=== PATIENT | male | born 1960 | race Native Hawaiian/Other Pacific Islander ===

== ENCOUNTER 2018-11-09 13:11 | Emergency (ER) | payer OTHER | END 2018-11-09 15:49 | disposition home or self-care (01) | LOC: C.ER 13:11 ==

== ENCOUNTER 2018-11-11 17:23 | Inpatient (IN) | payer OTHER ==
[2018-11-11 17:24] VITALS: BMI 31.9
[2018-11-11] MEDS ORDERED: Nitroglycerin 2% Ointment Foilpak UD TOP STA (17:59)
--- NOTE | 2018-11-11 18:06 | C.PDOC ---
History Of Present Illness 58 y/o male pt presents to the ER c/o headache from elevated blood pressure. Pt was recently dx with flu and HTN. Pt blood pressure is about 200 systolic and headache is progressively worse. Pt takes Theraflu. Associated sx includes cough and SOB. Pt denies chest pain and any other associated sx or complaints at this time. <Kahlil Ames V - Last Filed: 11/11/18 19:08> History Per: Patient History/Exam Limitations: no limitations Onset/Duration Of Symptoms: Days Current Symptoms Are (Timing): Still Present <Kahlil Ames V - Last Filed: 11/11/18 19:08> <Aaron Gallegos R - Last Filed: 11/11/18 22:31> Time Seen by Provider: 11/11/18 17:47 Chief Complaint (Nursing): Headache Past Medical History Reviewed: Historical Data, Nursing Documentation, Vital Signs Vital Signs: Last Vital Signs Temp 98 F 11/11/18 17:33 Pulse 62 11/11/18 17:33 Resp 18 11/11/18 17:33 BP 220/137 H 11/11/18 17:33 Pulse Ox 98 11/11/18 17:33 - Medical History PMH: HTN, Hypercholesterolemia Family History: States: Unknown Family Hx - Social History Hx Alcohol Use: No Hx Substance Use: No - Immunization History Hx Tetanus Toxoid Vaccination: No Hx Influenza Vaccination: No Hx Pneumococcal Vaccination: No <Kahlil Ames V - Last Filed: 11/11/18 19:08> Vital Signs: Last Vital Signs Temp 98 F 11/11/18 17:33 Pulse 60 11/11/18 18:42 Resp 20 11/11/18 18:42 BP 189/123 H 11/11/18 18:42 Pulse Ox 98 11/11/18 19:08 <Aaron Gallegos R - Last Filed: 11/11/18 22:31> Review Of Systems Except As Marked, All Systems Reviewed And Found Negative. Constitutional: Positive for: Other (Dx flu and HTN) Eyes: Negative for: Vision Change Cardiovascular: Negative for: Chest Pain Respiratory: Positive for: Cough, Shortness of Breath Gastrointestinal: Negative for: Nausea, Vomiting Neurological: Positive for: Headache <Kahlil Ames V - Last Filed: 11/11/18 19:08> Physical Exam - Physical Exam Appears: Non-toxic, No Acute Distress Skin: Warm, Dry Head: Atraumatic, Normacephalic Eye(s): bilateral: Normal Inspection, PERRL, EOMI Nose: Normal Oral Mucosa: Moist Throat: Erythema, No Exudate, No Drooling Chest: Symmetrical Cardiovascular: Rhythm Regular Respiratory: No Decreased Breath Sounds, No Accessory Muscle Use, No Rales, No Rhonchi, No Stridor, Wheezing (mild b/l ) Gastrointestinal/Abdominal: Soft, No Tenderness Neurological/Psych: Oriented x3, Normal Speech, Normal Cognition <Kahlil Ames V - Last Filed: 11/11/18 19:08> ED Course And Treatment - Laboratory Results Result Diagrams: 11/11/18 18:07 11/11/18 18:07 ECG: Interpreted By Me, Viewed By Me ECG Rhythm: Sinus Rhythm Interpretation Of ECG: normal sinus. incomplete RBBB. nonspecific T wave abnormality Rate From EC O2 Sat by Pulse Oximetry: 98 (RA) Pulse Ox Interpretation: Normal <Kahlil Ames V - Last Filed: 11/11/18 19:08> - Laboratory Results Result Diagrams: 11/11/18 18:07 11/11/18 18:07 Lab Results: Troponin I < 0.0120 ng/mL (0.00-0.120) 11/11/18 18:07 Total Bilirubin 1.1 mg/dL (0.2-1.3) 11/11/18 18:07 AST 42 U/L (17-59) 11/11/18 18:07 ALT 25 U/L (21-72) 11/11/18 18:07 Alkaline Phosphatase 60 U/L (38-126) 11/11/18 18:07 Total Protein 7.7 g/dL (6.3-8.3) 11/11/18 18:07 Albumin 4.4 g/dL (3.5-5.0) 11/11/18 18:07 Globulin 3.2 gm/dL (2.2-3.9) 11/11/18 18:07 Albumin/Globulin Ratio 1.4 (1.0-2.1) 11/11/18 18:07 <Aaron Gallegos - Last Filed: 11/11/18 22:31> Medical Decision Making Medical Decision Making: plans: -- chem labs -- blood work -- CXR -- catapres -- morphine -- nitroglycerin -- zofran <Kahlil Ames V - Last Filed: 11/11/18 19:08> Medical Decision Making: On reexamination, patient reports headache is better but is still wheezing, duoneb ordered. <Aaron Gallegos - Last Filed: 11/11/18 22:31> Disposition - Disposition Disposition Time: 19:08 <Kahlil Ames V - Last Filed: 11/11/18 19:08> Discussed With : Xuan Dewitt Doctor Will See Patient In The: Hospital Counseled Patient/Family Regarding: Diagnosis - Disposition Disposition Time: 22:29 - POA Present On Arrival: None <Aaron Gallegos - Last Filed: 11/11/18 22:31> - Disposition Disposition: HOSPITALIZED Condition: STABLE Forms: [employer] (Russian) - Clinical Impression Clinical Impression: Headache, Hypertension, Basal ganglia infarction - Scribe Statement The provider has reviewed the documentation as recorded by the Merrill Rangel Do Provider Attestation: All medical record entries made by the Scribe were at my direction and personally dictated by me. I have reviewed the chart and agree that the record accurately reflects my personal performance of the history, physical exam, medi alejandro decision making, and the department course for this patient. I have also personally directed, reviewed, and agree with the discharge instructions and disposition. <Kahlil Ames V - Last Filed: 11/11/18 19:08> Physician Patient Turnover Patient Signed Over To: Aaron Gallegos Handoff Comments: CT head pending, reeval and plans to d/c on clonidine prn <Kahlil Ames V - Last Filed: 11/11/18 19:08>
[2018-11-11 18:15] LABS: BASO % 0.7 % (0.0-2.0); EOS # 0.2 K/uL (0.0-0.7); EOS % 3.3 % (0.0-4.0); HEMOGLOBIN 17.9 g/dL (12.0-18.0); LYMPH # 2.2 K/uL (1.0-4.3); MEAN CELL VOLUME 88.4 fL (80.0-94.0); MEAN CORPUSCULAR HEMOGLOBIN 30.1 pg (27.0-31.0); MEAN PLATELET VOLUME 7.8 fL (7.2-11.7); MONO # 0.6 K/uL (0.0-0.8); NEUT # 2.6 K/uL (1.8-7.0); NRBC % 0.2 % (0.0-2.0); RBC 5.97 Mil/uL (4.40-5.90); WHITE BLOOD COUNT 5.6 K/uL (4.8-10.8)
[2018-11-11] MEDS ORDERED: Nitroglycerin 2% Ointment Foilpak UD TOP ONE ×2 (18:22→18:42)
[2018-11-11 18:31] LABS: ALB/GLOB RATIO 1.4 (1.0-2.1); ALBUMIN 4.4 g/dL (3.5-5.0); ALT/SGPT 25 U/L (21-72); AST/SGOT 42 U/L (17-59); BLOOD UREA NITROGEN 25 mg/dL (9-20); CALCIUM 10.5 mg/dl (8.6-10.4); GFR NON-AFRICAN AMERICAN 48
[2018-11-11] MEDS ORDERED: Potassium Chloride 20 mEq ER Tab PO ONE ×2 (18:34→19:15)
[2018-11-11] MEDS ORDERED: Albuterol-Ipratrop 3 mg / 0.5 (3 ml) UD INH STA ×2 (18:37→19:35)
[2018-11-11] MEDS ORDERED: Albuterol-Ipratrop 3 mg / 0.5 (3 ml) UD ONE ×2 (19:15→19:49)
[2018-11-11] MEDS ORDERED: Iodixanol 320 MG/ML 100 ML BOTTLE IV ONE (19:38)
--- NOTE | 2018-11-11 21:09 | CT ---
Date of service: 11/11/2018 PROCEDURE: CT HEAD WITHOUT CONTRAST. HISTORY: Headache COMPARISON: None available. TECHNIQUE: Axial computed tomography images were obtained through the head/brain without intravenous contrast. Radiation dose: Total exam DLP = 1256.38 mGy-cm. This CT exam was performed using one or more of the following dose reduction techniques: Automated exposure control, adjustment of the mA and/or kV according to patient size, and/or use of iterative reconstruction technique. FINDINGS: HEMORRHAGE: No intracranial hemorrhage. BRAIN: No mass effect or edema. Scattered focal lucencies in the subcortical and periventricular white matter suggestive for chronic microvascular ischemic change. Mild bifrontal extra-axial prominence. Left basal ganglia lacunar infarct. VENTRICLES: Unremarkable. No hydrocephalus. CALVARIUM: Unremarkable. PARANASAL SINUSES: Unremarkable as visualized. No significant inflammatory changes. MASTOID AIR CELLS: Unremarkable as visualized. No inflammatory changes. OTHER FINDINGS: Intracranial arterial calcifications. Note is made of a tortuous and ectatic basilar artery. If warranted correlation with a contrast-enhanced study may be considered. IMPRESSION: Chronic microvascular ischemic changes. Left basal ganglia lacunar infarct. Note is made of a tortuous and ectatic basilar artery. If warranted correlation with a contrast-enhanced study may be considered. A preliminary report was generated at 7:12 p.m. on 11/11/[address] Devin Cronin from [employer].
--- NOTE | 2018-11-11 21:11 | RAD ---
Chest x-ray single frontal view HISTORY: Shortness of breath. COMPARISON: None available. FINDINGS: Mild venous congestion. Right hilar prominence. Tortuous ectatic aorta. Cardiomegaly. Upper lobe granulomatous changes. Degenerative changes in the spine and shoulders. Impression: Mild venous congestion. Right hilar prominence. Tortuous ectatic aorta. Cardiomegaly.
[2018-11-11] MEDS ORDERED: Potassium Chloride 20 mEq/15 ml LIQ UD PO STA (22:06)
[2018-11-11] MEDS ORDERED: Tramadol 25 mg PO STA (23:34)
[2018-11-12] MEDS ORDERED: Labetalol 5 mg/ml Inj 20ML IV STA (00:37)
--- NOTE | 2018-11-12 03:15 | PCM.RRT ---
SALES OFFICE MANAGER Nurses Assessment - Situation Date: 11/12/18 Time SALES OFFICE MANAGER was called: 02:35 SALES OFFICE MANAGER Responder Arrival Time:: 02:35 SALES OFFICE MANAGER Location:: Med/Surg Room Number: 562-A SALES OFFICE MANAGER Reason for Call: Hypertension SALES OFFICE MANAGER Called By: RN - IV IV Inserted during SALES OFFICE MANAGER?: No - Respiratory SALES OFFICE MANAGER Delivery Method: Room Air - Medication Medications Administered During SALES OFFICE MANAGER: catapres 0.3mg. morphine 1mg - Diagnostic Test Ordered EKG: Yes - Stat Labs Ordered SALES OFFICE MANAGER Stat Labs Ordered: TROPONIN CPR started during SALES OFFICE MANAGER?: No - Vital Signs Vital Signs: BP 206/133 HR 61 96% on RA - Vital Signs at end of SALES OFFICE MANAGER Vital Signs at end of SALES OFFICE MANAGER: BP 175/118 - Recommendations 5) SALES OFFICE MANAGER Level of Care Recommendations: Transfer to ICU I.Reason for SALES OFFICE MANAGER - A) Acute Change in Patient: (Select all that apply): Acute change in SBP below Subjective: SALES OFFICE MANAGER called by nurse for concerns of hypertension. Patient presented to floor refractory to antihypertensive medications and with persistent headaches. Pat ient had no orders placed. On arrival, patient complained of headache of several days, unrelieved with medications. - Neurological Status (Select all that apply): Alert - Respiratory Oxygen Delivery Method: Room Air - Constitutional Appears: Non-toxic, No Acute Distress - Head Head Exam: ATRAUMATIC, NORMAL INSPECTION, NORMOCEPHALIC - Eyes Eye Exam: EOMI, Normal appearance - Respiratory Exam Respiratory Exam: Clear to Ausculation Bilateral, NORMAL BREATHING PATTERN - Cardiovascular Exam Cardiovascular Exam: Bradycardia, REGULAR RHYTHM - GI/Abdominal Exam GI & Abdominal Exam: Soft, Normal Bowel Sounds - Neurological Exam Neurological Exam: Alert, Awake, Oriented x3 - Extremities Exam Extremities Exam: Normal Inspection. absent: Calf Tenderness Plan - Assessment of Findings&Treatment Plan SALES OFFICE MANAGER called for hypertensive emergency(headache) Refractory to treatment in ED prior to arrival on floor given 0.3mg catapres on floor EKG: non specific conduction delay, ST/T wave abnormality cardiac enzymes ordered Neurology consult per abnormal CT report of lacunar infarct transfer to ICU; start nicardipine drip Discussed with Dr. Garcia -Chantal Lewis, PGY-1
[2018-11-12 03:51] LABS: CK-MB 0.59 ng/mL (0.0-3.38)
[2018-11-12] MEDS: niCARdipine IV 25 MG in Sodium Chloride 0.9% 240 ML IV SCH ×2 (04:10→10:16)
--- NOTE | 2018-11-12 05:52 | CP.PCM.CON ---
History of Present Illness - History of Present Illness History of Present Illness: CCM 58 yo male with hx HTN /HLD to ED c/o DELACRUZ and cough with some sob. found with elevated BP and given multiple doses of meds. Pt adm. to floor and Rapid response naranjo for elevated BP. Pt denied n /v /d /urinary sx/ . Pt DELACRUZ is better. No sick contacts or recent travel. ROS- as noted All-asa social+tob/ Occ etoh/ no drugs Meds-reviewed FH- Unknown PE T- 97.8 P-61 R-16 BP 206/133 alert responsive,nad Perrl neck- no jvd Lungs- bilat bs Heart-rr aBd- benign eXt- no edema, nontender Neuro- no motor or sensory deficit labs, EKG, [id number] A&P HTN Emergency HLD BRUNILDA Left BG lacunar infarct- unclear age Hypokalemia Transfer to ICU start Cardene Optimize BP control check influenza analgesia prn hydration ECHO maintain optimal lytes DVT prophylaxis Past Patient History - Past Social History Smoking Status: Light Smoker < 10 Cigarettes Daily - CARDIAC Hx Hypercholesterolemia: Yes Hx Hypertension: Yes Hx Peripheral Edema: Yes - PULMONARY Hx Respiratory Tract Infection: Yes (flu) - RENAL Hx Kidney Stones: Yes - MUSCULOSKELETAL/RHEUMATOLOGICAL Hx Falls: No - PSYCHIATRIC Hx Substance Use: No - SURGICAL HISTORY Hx Surgeries: No - ANESTHESIA Hx Anesthesia: No Hx Anesthesia Reactions: No Hx Malignant Hyperthermia: No Has any member of the family had a problem w/ anesthesia?: No Meds Allergies/Adverse Reactions: Allergies Allergy/AdvReac Type Severity Reaction Status Date / Time aspirin AdvReac SWELLING Verified 11/11/18 17:32 - Medications Medications: Current Medications Nicardipine HCl 25 mg/ Sodium (Chloride) 250 mls @ 50 mls/hr IV .Q5H [facility]; Protocol Last Titration: 11/12/18 04:48 Dose: 0 mg/hr, 0 mls/hr Results - Vital Signs Recent Vital Signs: Last Vital Signs Temp 97.9 F 11/12/18 04:00 Pulse 56 L 11/12/18 05:15 Resp 12 11/12/18 05:15 BP 125/83 11/12/18 05:12 Pulse Ox 93 L 11/12/18 05:15 - Labs Result Diagrams: 11/11/18 18:07 11/11/18 18:07 Labs: Laboratory Results - last 24 hr 11/11/18 11/11/18 11/11/18 18:07 18:07 19:51 WBC 5.6 RBC 5.97 H Hgb 17.9 Hct 52.7 H MCV 88.4 MCH 30.1 MCHC 34.0 RDW 13.0 Plt Count 196 MPV 7.8 Neut % (Auto) 46.0 L Lymph % (Auto) 39.0 [place] % (Auto) 11.0 H Eos % (Auto) 3.3 Baso % (Auto) 0.7 Neut # (Auto) 2.6 Lymph # (Auto) 2.2 [place] # (Auto) 0.6 Eos # (Auto) 0.2 Baso # (Auto) 0.0 D-Dimer, Quantitative < 200 Sodium 136 Potassium 3.2 L Chloride 94 L Carbon Dioxide 33 H Anion Gap 11 BUN 25 H Creatinine 1.5 Est GFR ( Amer) 58 Est GFR (Non-Af Amer) 48 POC Glucose (mg/dL) Random Glucose 104 Calcium 10.5 H Total Bilirubin 1.1 AST 42 ALT 25 Alkaline Phosphatase 60 Total Creatine Kinase CK-MB (Mass) Troponin I < 0.0120 NT-Pro-B Natriuret Pep Total Protein 7.7 Albumin 4.4 Globulin 3.2 Albumin/Globulin Ratio 1.4 11/11/18 11/12/18 11/12/18 19:58 02:39 03:10 WBC RBC Hgb Hct MCV MCH MCHC RDW Plt Count MPV Neut % (Auto) Lymph % (Auto) [place] % (Auto) Eos % (Auto) Baso % (Auto) Neut # (Auto) Lymph # (Auto) [place] # (Auto) Eos # (Auto) Baso # (Auto) D-Dimer, Quantitative Sodium Potassium Chloride Carbon Dioxide Anion Gap BUN Creatinine Est GFR ( Amer) Est GFR (Non-Af Amer) POC Glucose (mg/dL) 116 H Random Glucose Calcium Total Bilirubin AST ALT Alkaline Phosphatase Total Creatine Kinase 399 H CK-MB (Mass) 0.59 Troponin I < 0.0120 NT-Pro-B Natriuret Pep 92.2 Total Protein Albumin Globulin Albumin/Globulin Ratio Assessment & Plan (1) Hypertensive emergency without congestive heart failure Status: Acute (2) Headache Status: Acute (3) BRUNILDA (acute kidney injury) Status: Acute (4) Lacunar infarction Status: Acute
[2018-11-12 06:38] LABS: ALB/GLOB RATIO 1.4 (1.0-2.1); ALBUMIN 4.1 g/dL (3.5-5.0); ALT/SGPT 9 U/L (21-72); AST/SGOT 78 U/L (17-59); BLOOD UREA NITROGEN 25 mg/dL (9-20); CALCIUM 9.2 mg/dl (8.6-10.4); GFR NON-AFRICAN AMERICAN > 60
[2018-11-12 06:40] LABS: BASO % 0.6 % (0.0-2.0); EOS # 0.1 K/uL (0.0-0.7); EOS % 1.3 % (0.0-4.0); HEMOGLOBIN 16.2 g/dL (12.0-18.0); LYMPH # 1.4 K/uL (1.0-4.3); LYMPH % 23.7 % (20.0-40.0); MEAN CELL VOLUME 88.6 fL (80.0-94.0); MEAN CORPUSCULAR HEMOGLOBIN 30.3 pg (27.0-31.0); MEAN CORPUSCULAR HGB CONC 34.2 g/dL (33.0-37.0); MEAN PLATELET VOLUME 8.1 fL (7.2-11.7); MONO # 0.4 K/uL (0.0-0.8); MONO % 7.2 % (0.0-10.0); NEUT # 3.9 K/uL (1.8-7.0); NEUT % 67.2 % (50.0-75.0); NRBC % 0.2 % (0.0-2.0); RBC 5.36 Mil/uL (4.40-5.90); RED CELL DISTRIBUTION WIDTH 12.8 % (11.5-14.5); WHITE BLOOD COUNT 5.7 K/uL (4.8-10.8)
--- NOTE | 2018-11-12 13:13 | CP.PCM.CON ---
History of Present Illness - History of Present Illness History of Present Illness: Neurology Consultation Note: Consult requested by Dr. Dewitt Mr. Cohn is a 58-year-old man with recently diagnosed hypertension, who presented to the ED yesterday with a headache and found to be extremely hypertensive in the 220's systolic range. CT head was done and did not show any concerning findings. There was a chronic right lacunar basal ganglia infarct, but no acute findings. He had no focal deficits. He was transferred to ICU due to refractory hypertension and was started on cardene drip. His pressure is now well controlled and his headache has subsided. Review of Systems - Constitutional Constitutional: As Per HPI - EENT Eyes: absent: As Per HPI, Blind Spots, Blurred Vision, Change in Vision, Decreased Night Vision, Diplopia, Discharge, Dry Eye, Exophthalmos, Floaters, Irritation, Itchy Eyes, Loss of Peripheral Vision, Pain, Photophobia, Requires Corrective Lenses, Sees Flashes, Spots in Vision, Tunnel Vision, Other Visual Disturbances, Loss of Vision, Other Ears: absent: As Per HPI, Decreased Hearing, Ear Discharge, Ear Pain, Tinnitus, Abnormal Hearing, Disequilibrium, Dizziness, Other Nose/Mouth/Throat: absent: As Per HPI, Epistaxis, Nasal Congestion, Nasal Discharge, Nasal Obstruction, Nasal Trauma, Nose Pain, Post Nasal Drip, Sinus Pain, Sinus Pressure, Bleeding Gums, Change in Voice, Dental Pain, Dry Mouth, Dysphagia, Halitosis, Hoarsness, Lip Swelling, Mouth Lesions, Mouth Pain, Odynophagia, Sore Throat, Throat Swelling, Tongue Swelling, Facial Pain, Neck Pain, Neck Mass, Other - Cardiovascular Cardiovascular: As Per HPI - Respiratory Respiratory: absent: As Per HPI, Cough, Dyspnea, Hemoptysis, Dyspnea on Exertion, Wheezing, Snoring, Stridor, Pain on Inspiration, Chest Congestion, Excessive Mucous Production, Change in Mucous Color, Pain with Coughing, Other - Neurological Neurological: As Per HPI - Psychiatric Psychiatric: absent: As Per HPI, Abnormal Sleep Pattern, Anhedonia, Anxiety, Auditory Hallucinations, Behavioral Changes, Change in Appetite, Change in Libid o, Confusion, Depression, Difficulty Concentrating, Hallucinations, Homicidal Ideation, Hopelessness, Irritability, Memory Loss, Mood Swings, Panic Attacks, Paranoia, Suicidal Ideation, Visual Hallucinations, Tactile Hallucinations, Other - Endocrine Endocrine: absent: As Per HPI, Change in Body Appearance, Change in Libido, Cold Intolorance, Deepening of Voice, Excessive Sweating, Fatigue, Flushing, Heat Intolorance, Increase in Ring/Shoe/Hat Size, Palpitations, Polydipsia, Polyphagia, Polyuria, Other - Hematologic/Lymphatic Hematologic: absent: As Per HPI, Easy Bleeding, Easy Bruising, Lymphadenopathy, Other Past Patient History - Past Social History Smoking Status: Light Smoker < 10 Cigarettes Daily - CARDIAC Hx Hypercholesterolemia: Yes Hx Hypertension: Yes Hx Peripheral Edema: Yes - PULMONARY Hx Respiratory Tract Infection: Yes (flu) - RENAL Hx Kidney Stones: Yes - MUSCULOSKELETAL/RHEUMATOLOGICAL Hx Falls: No - PSYCHIATRIC Hx Substance Use: No - SURGICAL HISTORY Hx Surgeries: No - ANESTHESIA Hx Anesthesia: No Hx Anesthesia Reactions: No Hx Malignant Hyperthermia: No Has any member of the family had a problem w/ anesthesia?: No Meds Allergies/Adverse Reactions: Allergies Allergy/AdvReac Type Severity Reaction Status Date / Time aspirin AdvReac SWELLING Verified 11/11/18 17:32 - Medications Medications: Current Medications Clopidogrel Bisulfate (Plavix) 75 mg PO DAILY [facility] Nicardipine HCl 25 mg/ Sodium (Chloride) 250 mls @ 50 mls/hr IV .Q5H [facility]; Protocol Last Titration: 11/12/18 10:17 Dose: 5 mg/hr, 50 mls/hr Labetalol HCl (Trandate) 200 mg PO BID [facility] Last Admin: 11/12/18 10:15 Dose: 200 mg Losartan Potassium (Cozaar) 25 mg PO DAILY [facility] Oseltamivir Phosphate (Tamiflu Cap) 75 mg PO BID [facility]; Protocol Stop: 11/17/18 06:41 Last Admin: 11/12/18 10:16 Dose: 75 mg Rosuvastatin Calcium (Crestor) 40 mg PO HS [facility] Physical Exam - Constitutional Appears: Well - Head Exam Head Exam: ATRAUMATIC, NORMAL INSPECTION, NORMOCEPHALIC - Eye Exam Eye Exam: EOMI, Normal appearance, PERRL Pupil Exam: NORMAL ACCOMODATION, PERRL - ENT Exam ENT Exam: Mucous Membranes Moist, Normal Exam - Neck Exam Neck exam: Positive for: Normal Inspection - Respiratory Exam Respiratory Exam: Clear to Auscultation Bilateral, NORMAL BREATHING PATTERN - Cardiovascular Exam Cardiovascular Exam: REGULAR RHYTHM - GI/Abdominal Exam GI & Abdominal Exam: Normal Bowel Sounds, Soft. absent: Tenderness - Extremities Exam Extremities exam: Positive for: normal inspection - Back Exam Back exam: NORMAL INSPECTION - Neurological Exam Neurological exam: Alert, CN II-XII Intact, Normal Gait, Oriented x3, Reflexes Normal - Psychiatric Exam Psychiatric exam: Normal Affect, Normal Mood - Skin Skin Exam: Dry, Intact, Normal Color, Warm Results - Vital Signs Recent Vital Signs: Last Vital Signs Temp 97.9 F 11/12/18 04:00 Pulse 61 11/12/18 11:18 Resp 15 11/12/18 11:18 BP 138/95 H 11/12/18 11:18 Pulse Ox 94 L 11/12/18 11:18 - Labs Result Diagrams: 11/12/18 06:12 11/12/18 06:12 Labs: Laboratory Results - last 24 hr 11/11/18 11/11/18 11/11/18 18:07 18:07 19:51 WBC 5.6 RBC 5.97 H Hgb 17.9 Hct 52.7 H MCV 88.4 MCH 30.1 MCHC 34.0 RDW 13.0 Plt Count 196 MPV 7.8 Neut % (Auto) 46.0 L Lymph % (Auto) 39.0 [place] % (Auto) 11.0 H Eos % (Auto) 3.3 Baso % (Auto) 0.7 Neut # (Auto) 2.6 Lymph # (Auto) 2.2 [place] # (Auto) 0.6 Eos # (Auto) 0.2 Baso # (Auto) 0.0 Differential Comment D-Dimer, Quantitative < 200 Sodium 136 Potassium 3.2 L Chloride 94 L Carbon Dioxide 33 H Anion Gap 11 BUN 25 H Creatinine 1.5 Est GFR ( Amer) 58 Est GFR (Non-Af Amer) 48 POC Glucose (mg/dL) Random Glucose 104 Calcium 10.5 H Phosphorus Magnesium Total Bilirubin 1.1 AST 42 ALT 25 Alkaline Phosphatase 60 Total Creatine Kinase CK-MB (Mass) Troponin I < 0.0120 NT-Pro-B Natriuret Pep Total Protein 7.7 Albumin 4.4 Globulin 3.2 Albumin/Globulin Ratio 1.4 Influenza Typ A,B (EIA) 11/11/18 11/12/18 11/12/18 19:58 02:39 03:10 WBC RBC Hgb Hct MCV MCH MCHC RDW Plt Count MPV Neut % (Auto) Lymph % (Auto) [place] % (Auto) Eos % (Auto) Baso % (Auto) Neut # (Auto) Lymph # (Auto) [place] # (Auto) Eos # (Auto) Baso # (Auto) Differential Comment D-Dimer, Quantitative Sodium Potassium Chloride Carbon Dioxide Anion Gap BUN Creatinine Est GFR ( Amer) Est GFR (Non-Af Amer) POC Glucose (mg/dL) 116 H Random Glucose Calcium Phosphorus Magnesium Total Bilirubin AST ALT Alkaline Phosphatase Total Creatine Kinase 399 H CK-MB (Mass) 0.59 Troponin I < 0.0120 NT-Pro-B Natriuret Pep 92.2 Total Protein Albumin Globulin Albumin/Globulin Ratio Influenza Typ A,B (EIA) 11/12/18 11/12/18 11/12/18 06:12 06:12 06:12 WBC 5.7 RBC 5.36 Hgb 16.2 Hct 47.5 MCV 88.6 MCH 30.3 MCHC 34.2 RDW 12.8 Plt Count 147 MPV 8.1 Neut % (Auto) 67.2 Lymph % (Auto) 23.7 [place] % (Auto) 7.2 Eos % (Auto) 1.3 Baso % (Auto) 0.6 Neut # (Auto) 3.9 Lymph # (Auto) 1.4 [place] # (Auto) 0.4 Eos # (Auto) 0.1 Baso # (Auto) 0.0 Differential Comment D-Dimer, Quantitative Sodium 133 Potassium 4.2 Chloride 95 L Carbon Dioxide 29 Anion Gap 13 BUN 25 H Creatinine 1.1 Est GFR ( Amer) > 60 Est GFR (Non-Af Amer) > 60 POC Glucose (mg/dL) Random Glucose 112 H Calcium 9.2 Phosphorus 4.7 H Magnesium 1.8 Total Bilirubin 2.0 H AST 78 H D ALT 9 L D Alkaline Phosphatase 31 L D Total Creatine Kinase CK-MB (Mass) Troponin I NT-Pro-B Natriuret Pep Total Protein 7.0 Albumin 4.1 Globulin 2.9 Albumin/Globulin Ratio 1.4 Influenza Typ A,B (EIA) Negative for flu a/b Assessment & Plan (1) Headache Assessment and Plan: Likely due to uncontrolled hypertension. No focal deficits on exam. Continue medical management. Will continue Plavix 75 mg daily for secondary stroke prevention. Thank you for this consultation. Status: Acute
--- NOTE | 2018-11-12 13:42 | CP.PCM.PN ---
Subjective - Date & Time of Evaluation Date of Evaluation: 11/12/18 Time of Evaluation: 13:38 - Subjective Subjective: Patient admitted to ICU for uncontrolled HTN after taking decongestant with pseudoephedrine orally. Patient was placed on cardene ggt and started on Oral plavix. Patient has no specific complaints. denies any chest pain, denies any weakness, denies any abdominel pain Objective - Vital Signs/Intake and Output Vital Signs (last 24 hours): Temp Pulse Resp BP Pulse Ox 97.9 F 61 15 138/95 H 94 L 11/12/18 04:00 11/12/18 11:18 11/12/18 11:18 11/12/18 11:18 11/12/18 11:18 Intake and Output: 11/12/18 11/12/18 06:59 18:59 Intake Total 160 100 Output Total 0 0 Balance 160 100 - Medications Medications: Current Medications Clopidogrel Bisulfate (Plavix) 75 mg PO DAILY [facility] Clopidogrel Bisulfate (Plavix) 300 mg PO ONCE ONE Stop: 11/12/18 13:46 Enoxaparin Sodium (Lovenox) 40 mg SC DAILY [facility] Famotidine (Pepcid) 20 mg PO DAILY [facility] Labetalol HCl (Trandate) 200 mg PO BID [facility] Last Admin: 11/12/18 10:15 Dose: 200 mg Losartan Potassium (Cozaar) 25 mg PO DAILY [facility] Oseltamivir Phosphate (Tamiflu Cap) 75 mg PO BID [facility]; Protocol Stop: 11/17/18 06:41 Last Admin: 11/12/18 10:16 Dose: 75 mg Rosuvastatin Calcium (Crestor) 40 mg PO [facility] - Labs Labs: 11/12/18 06:12 11/12/18 06:12 - Constitutional Appears: Well, Non-toxic, No Acute Distress - Head Exam Head Exam: ATRAUMATIC, NORMAL INSPECTION - Eye Exam Eye Exam: EOMI - ENT Exam ENT Exam: Mucous Membranes Moist - Neck Exam Neck Exam: Full ROM - Respiratory Exam Respiratory Exam: Clear to Ausculation Bilateral, NORMAL BREATHING PATTERN. absent: Rhonchi, Wheezes, Respiratory Distress, Stridor - Cardiovascular Exam Cardiovascular Exam: REGULAR RHYTHM, +S1, +S2 - GI/Abdominal Exam GI & Abdominal Exam: Normal Bowel Sounds - Extremities Exam Extremities Exam: Full ROM, Normal Capillary Refill, Normal Inspection - Neurological Exam Neurological Exam: Alert, Awake, CN II-XII Intact, Oriented x3 - Skin Skin Exam: Normal Color, Warm Assessment and Plan - Assessment and Plan (Free Text) Assessment: HTN emergency: after taking pseudoephedrine, started on oral labetalol orally and titrate off cardene -at risk sri ASHD/CVA: continue statin + antiplatelets -tolerating oral diet -patient's influenza neg -patient remains afebrile -dvt ppx lovenox 40 q24 -pud pxp pepcid -Activity OOB to chair -pt/ot -patient remains hemodynamically stable PATIENT STRONGLY ADVISED TO AVOID OTC WITH PSEUDOEPHEDEINE
--- NOTE | 2018-11-12 13:45 | CT ---
Date of service: 11/11/2018 PROCEDURE: CT Angiography of the neck and brain. HISTORY: headache/ tortous basilar artery COMPARISON: Noncontrast CT scan same day TECHNIQUE: CT angiography of the neck and intracranial arteries was performed. Coronal and sagittal maximum intensity projection reformated images were generated. Radiation dose: Total exam DLP = 646.97 mGy-cm. This CT exam was performed using one or more of the following dose reduction techniques: Automated exposure control, adjustment of the mA and/or kV according to patient size, and/or use of iterative reconstruction technique. FINDINGS: CT angiography neck: There is extremely suboptimal opacification of the aorta, aortic branch vessels, common carotid arteries, and vertebral arteries. This could be related to suboptimal injection timing, however there are numerous collaterals identified within the neck and shoulder region. There appears to be some compression of the midportion of the left brachiocephalic vein adjacent to an enlarged and mildly aneurysmal aorta as well as exiting left common carotid artery and right brachiocephalic arterial trunk is seen on axial image 16 through 24 with narrowing of the space between the sternum and vessels and causing compression of the venous structure in this area. No appreciable thrombus is noted, and there appears to be some lesser degree flow within the distal brachiocephalic vein entering the superior vena cava. There is poor opacification of the right subclavian vein and right neck veins. Therefore evaluation of the common carotid arteries and origins of the vertebral arteries as well as the carotid bifurcation cannot be adequately evaluated although they all appear grossly patent. The left vertebral artery appears to be dominant. No obvious carotid bifurcation stenosis is clearly seen on the limited images provided. There is additionally possible adequate flow noted within the cervical internal carotid arteries. No appreciable neck adenopathy is seen. Visualized oral pharynx is narrowed by some slightly prominent lingual tonsil soft tissue without focal mass. Visualized glottis and vocal cord region are unremarkable. Visualized lung apices are within normal limits without infiltrate. Upper esophagus is within normal limits. Degenerative changes are seen in the cervical spine without malalignment or fracture. There is atherosclerotic change of the aorta also seen . INTERNAL CEREBRAL ARTERIES: Intracranial internal carotid arteries are limited but appear grossly patent without focal atherosclerotic narrowing or calcification. Internal carotid artery bifurcation is unremarkable. ANTERIOR CEREBRAL ARTERIES: Unremarkable. A1 and A2 segments are widely patent. Smaller distal branches unremarkable, as visualized. MIDDLE CEREBRAL ARTERIES: Unremarkable. M1 and M2 segments are widely patent. Perisylvian branches grossly symmetric. POSTERIOR CIRCULATION: Basilar Artery: Basilar artery is patent and fed by a prominent ectatic and tortuous left vertebral artery. 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 Left vertebral artery is prominent with ectasias but no focal stenosis or aneurysm. The enlargement begins in the distal V4 segment. 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 Posterior cerebral arteries however are patent but limited by the injection. Posterior Inferior Cerebellar Arteries: Limited ANEURYSM/ VASCULAR MALFORMATIONS: No appreciable aneurysm is seen although the injection limits evaluation for aneurysm. OTHER FINDINGS: Visualized sinuses and orbits are unremarkable. No appreciable mass enhancing lesion or cortical effacement of the brain is noted. Visualized bony structures are intact. IMPRESSION: Extremely limited examination due to under opacification of the arterial structures. As discussed in detail above this may be related to injection timing, however there also appears to be the suggestion of some compression of the distal left brachiocephalic vein as it traverses towards the superior vena cava. This is more than likely compressed by the aorta and proximal great vessels with narrowing of the space between the sternum and great vessels. This is causing moderate collateral formation in the neck. Therefore the exam is extremely limited for evaluation of stenosis and aneurysm. There is a ectatic and tortuous distal left vertebral artery feeding the tortuous basilar artery which is otherwise normal in size and patent. No major intracranial arterial stenosis identified. Evaluation of the arterial structures still remains of strong clinical concern, carotid ultrasound for the neck and MRA of the neck or brain could be obtained.
[2018-11-12] MEDS: Enoxaparin 40 mg Syringe SC SCH (13:49)
[2018-11-13 06:21] LABS: BASO % 0.6 % (0.0-2.0); EOS # 0.1 K/uL (0.0-0.7); EOS % 2.1 % (0.0-4.0); HEMOGLOBIN 15.8 g/dL (12.0-18.0); LYMPH # 1.9 K/uL (1.0-4.3); LYMPH % 38.4 % (20.0-40.0); MEAN CELL VOLUME 87.5 fL (80.0-94.0); MEAN CORPUSCULAR HEMOGLOBIN 30.4 pg (27.0-31.0); MEAN CORPUSCULAR HGB CONC 34.7 g/dL (33.0-37.0); MEAN PLATELET VOLUME 7.4 fL (7.2-11.7); MONO # 0.4 K/uL (0.0-0.8); MONO % 7.9 % (0.0-10.0); NEUT # 2.5 K/uL (1.8-7.0); RBC 5.22 Mil/uL (4.40-5.90); RED CELL DISTRIBUTION WIDTH 12.7 % (11.5-14.5); WHITE BLOOD COUNT 4.9 K/uL (4.8-10.8)
[2018-11-13 06:44] LABS: LDL CHOLESTEROL 93 mg/dL (0-129)
[2018-11-13 06:46] LABS: ALB/GLOB RATIO 1.5 (1.0-2.1); ALBUMIN 3.9 g/dL (3.5-5.0); ALT/SGPT 18 U/L (21-72); AST/SGOT 27 U/L (17-59); BLOOD UREA NITROGEN 24 mg/dL (9-20); GFR NON-AFRICAN AMERICAN 57; HDL CHOLESTEROL 36 mg/dL (30-70)
--- NOTE | 2018-11-13 07:47 | CP.CCUPN ---
CCU Subjective - Physician Review Subjective (Free Text): ICU Progress Note for Dr. Mccollum Pt seen and examined at bedside this am. Denies any acute complaints, states DELACRUZ has resolved that was present on admission. Pt demonstrating uncontrolled BPs. Pt denies vision changes, chest pain, sob, n/v/d/c, abd pain, urinary complaints, or other symptoms. CCU Objective - Vital Signs / Intake & Output Vital Signs (Last 4 hours): Vital Signs Temp Pulse Resp BP Pulse Ox 11/13/18 07:00 62 13 95 11/13/18 06:50 65 11 L 167/123 H 94 L 11/13/18 06:46 61 11 L 169/112 H 96 11/13/18 06:45 62 12 177/107 H 95 11/13/18 06:21 61 14 171/99 H 91 L 11/13/18 05:50 64 11 L 137/103 H 95 11/13/18 05:20 61 12 133/96 H 96 11/13/18 05:00 66 14 92 L 11/13/18 04:50 144/97 H 11/13/18 04:20 59 L 13 148/97 H 92 L 11/13/18 04:00 98 F 11/13/18 03:50 66 13 146/97 H 95 Intake and Output (Last 8hrs): Intake & Output 11/12/18 11/13/18 11/13/18 22:59 06:59 14:59 Intake Total 610 50 100 Output Total 1000 1300 Balance -390 -1250 100 Weight 235 lb Intake: IV 70 Oral 540 50 100 Output: Urine 1000 1300 Urine, Voided 1000 1300 Other: # Voids Urine, Voided 2 # Bowel Movements 1 - Physical Exam Head: Positive for: Atraumatic, Normocephalic Pupils: Positive for: PERRL Extroacular Muscles: Positive for: EOMI Conjunctiva: Positive for: Normal Mouth: Positive for: Moist Mucous Membranes Neck: Positive for: Normal Range of Motion. Negative for: JVD, Lymphadenopathy Respiratory/Chest: Positive for: Clear to Auscultation, Good Air Exchange. Negative for: Respiratory Distress, Accessory Muscle Use, Wheezes, Rales, Rhonchi Cardiovascular: Positive for: Regular Rate and Rhythm, Normal S1, S2. Negative for: Murmurs, Rub, Gallop Abdomen: Positive for: Normal Bowel Sounds. Negative for: Tenderness, Distention, Mass/Organomegaly Upper Extremity: Positive for: Normal Inspection, Normal ROM, NORMAL PULSES, Neurovascularly Intact, Capillary Refill < 2s. Negative for: Cyanosis, Edema Lower Extremity: Positive for: Normal Inspection, NORMAL PULSES, Normal ROM, Neurovascularly Intact, Capillary Refill < 2 s. Negative for: Edema Neurological: Positive for: GCS=15, CN II-XII Intact, Speech Normal Skin: Positive for: Warm, Dry, Normal Color Psychiatric: Positive for: Alert, Oriented x 3 - Medications Active Medications: Active Medications Generic Name Dose Route Start Last Admin Trade Name Freq PRN Reason Stop Dose Admin Clopidogrel Bisulfate 75 mg 11/13/18 10:00 Plavix PO DAILY [facility] Enoxaparin Sodium 40 mg 11/12/18 13:45 11/12/18 13:49 Lovenox SC 40 mg DAILY MIKEY Administration Famotidine 20 mg 11/12/18 13:45 11/12/18 13:49 Pepcid PO 20 mg DAILY MIKEY Administration Hydralazine HCl 10 mg 11/13/18 10:00 Apresoline PO QID MIKEY Labetalol HCl 200 mg 11/12/18 10:00 11/12/18 17:55 Trandate PO 200 mg BID MIKEY Administration Losartan Potassium 25 mg 11/12/18 12:45 11/12/18 13:41 Cozaar PO 25 mg DAILY MIKEY Administration Oseltamivir Phosphate 75 mg 11/12/18 10:00 11/12/18 17:53 Tamiflu Cap PO 11/17/18 06:41 75 mg BID MIKEY Administration Protocol Potassium Chloride 20 meq 11/13/18 07:45 Potassium Chloride Oral Soln PO 11/13/18 13:46 Q2H MIKEY Rosuvastatin Calcium 40 mg 11/12/18 22:00 11/12/18 21:54 Crestor PO 40 mg HS MIKEY Administration - Patient Studies Lab Studies: Microbiology Studies 11/12/18 08:50 MRSA Culture (Admit) - Preliminary Naris MRSA NOT DETECTED Lab Studies 11/13/18 11/13/18 11/12/18 Range/Units 06:00 06:00 06:12 WBC 4.9 5.7 (4.8-10.8) K/uL RBC 5.22 5.36 (4.40-5.90) Mil/uL Hgb 15.8 16.2 (12.0-18.0) g/dL Hct 45.7 47.5 (35.0-51.0) % MCV 87.5 88.6 (80.0-94.0) fL MCH 30.4 30.3 (27.0-31.0) pg MCHC 34.7 34.2 (33.0-37.0) g/dL RDW 12.7 12.8 (11.5-14.5) % Plt Count 203 147 (130-400) K/uL MPV 7.4 8.1 (7.2-11.7) fL Neut % (Auto) 51.0 67.2 (50.0-75.0) % Lymph % (Auto) 38.4 23.7 (20.0-40.0) % [place] % (Auto) 7.9 7.2 (0.0-10.0) % Eos % (Auto) 2.1 1.3 (0.0-4.0) % Baso % (Auto) 0.6 0.6 (0.0-2.0) % Neut # (Auto) 2.5 3.9 (1.8-7.0) K/uL Lymph # (Auto) 1.9 1.4 (1.0-4.3) K/uL [place] # (Auto) 0.4 0.4 (0.0-0.8) K/uL Eos # (Auto) 0.1 0.1 (0.0-0.7) K/uL Baso # (Auto) 0.0 0.0 (0.0-0.2) K/uL Differential Comment Sodium 136 (132-148) mmol/L Potassium 2.7 L (3.6-5.2) mmol/L Chloride 95 L (98-107) mmol/L Carbon Dioxide 35 H (22-30) mmol/L Anion Gap 8 L (10-20) BUN 24 H (9-20) mg/dL Creatinine 1.3 (0.8-1.5) mg/dL Est GFR ( Amer) > 60 Est GFR (Non-Af Amer) 57 Random Glucose 97 (75-110) mg/dL Calcium 9.0 (8.6-10.4) mg/dl Phosphorus 3.1 (2.5-4.5) mg/dL Magnesium 1.9 (1.6-2.3) mg/dL Total Bilirubin 1.1 (0.2-1.3) mg/dL AST 27 (17-59) U/L ALT 18 L D (21-72) U/L Alkaline Phosphatase 42 (38-126) U/L Total Protein 6.5 (6.3-8.3) g/dL Albumin 3.9 (3.5-5.0) g/dL Globulin 2.6 (2.2-3.9) gm/dL Albumin/Globulin Ratio 1.5 (1.0-2.1) Triglycerides 142 (0-149) mg/dL Cholesterol 148 (0-199) mg/dL LDL Cholesterol Direct 93 (0-129) mg/dL HDL Cholesterol 36 (30-70) mg/dL Laboratory Results - last 24 hr 11/12/18 11/13/18 11/13/18 06:12 06:00 06:00 WBC 5.7 4.9 RBC 5.36 5.22 Hgb 16.2 15.8 Hct 47.5 45.7 MCV 88.6 87.5 MCH 30.3 30.4 MCHC 34.2 34.7 RDW 12.8 12.7 Plt Count 147 203 MPV 8.1 7.4 Neut % (Auto) 67.2 51.0 Lymph % (Auto) 23.7 38.4 [place] % (Auto) 7.2 7.9 Eos % (Auto) 1.3 2.1 Baso % (Auto) 0.6 0.6 Neut # (Auto) 3.9 2.5 Lymph # (Auto) 1.4 1.9 [place] # (Auto) 0.4 0.4 Eos # (Auto) 0.1 0.1 Baso # (Auto) 0.0 0.0 Differential Comment Sodium 136 Potassium 2.7 L Chloride 95 L Carbon Dioxide 35 H Anion Gap 8 L BUN 24 H Creatinine 1.3 Est GFR ( Amer) > 60 Est GFR (Non-Af Amer) 57 Random Glucose 97 Calcium 9.0 Phosphorus 3.1 Magnesium 1.9 Total Bilirubin 1.1 AST 27 ALT 18 L D Alkaline Phosphatase 42 Total Protein 6.5 Albumin 3.9 Globulin 2.6 Albumin/Globulin Ratio 1.5 Triglycerides 142 Cholesterol 148 LDL Cholesterol Direct 93 HDL Cholesterol 36 Radiology Impressions: Radiology Impressions Head/Neck CTA 11/11/18 19:29 IMPRESSION: Extremely limited examination due to under opacification of the arterial structures. As discussed in detail above this may be related to injection timing, however there also appears to be the suggestion of some compression of the distal left brachiocephalic vein as it traverses towards the superior vena cava. This is more than likely compressed by the aorta and proximal great vessels with narrowing of the space between the sternum and great vessels. This is causing moderate collateral formation in the neck. Therefore the exam is extremely limited for evaluation of stenosis and aneurysm. There is a ectatic and tortuous distal left vertebral artery feeding the tortuous basilar artery which is otherwise normal in size and patent. No major intracranial arterial stenosis identified. Evaluation of the arterial structures still remains of strong clinical concern, carotid ultrasound for the neck and MRA of the neck or brain could be obtained. Review of Systems - Constitutional Constitutional: absent: Fever, Chills, Sweats - EENT Eyes: absent: Change in Vision - Cardiovascular Cardiovascular: absent: Chest Pain, Dyspnea on Exertion, Edema, Palpitations, Syncope - Respiratory Respiratory: absent: Cough, Dyspnea on Exertion, Wheezing - Gastrointestinal Gastrointestinal: absent: Abdominal Pain, Constipation, Diarrhea, Nausea, Vomiting - Genitourinary Genitourinary: absent: Difficulty Urinating, Dysuria Critical Care Progress Note - Nutrition Nutrition: Nutrition Category Date Time Status Heart Healthy Diet [DIET] Diets 11/12/18 Breakfast Active Assessment/Plan - Assessment and Plan (Free Text) Assessment: 58 y o male PMhx HTN admitted to ICU for uncontrolled HTN after taking decongestant with pseudoephedrine orally. Initially placed on Cardene drip but BP and HR dropped too quickly with medication. Currently on oral antihypertensi ve therapy. Stable for downgrade from ICU to telemetry floor at this time. Plan: Neuro: -AAOx3, no deficits on exam -DELACRUZ resolved -Neurology consulted (Dr. Pascual), recs appreciated -CT head shows chronic R lacunar infarct -Brain MRI: No evidence of acute ICH or infarct. Multiple chronic appearing lacunar-type infarcts about basal ganglia. -MRA head/neck unremerkable -Carotid doppler ordered -ASA -Strict BP control Cardio: -HTN emergency -C/w Hydralazine, Cozaar and Labetalol, titrate as needed for BP control -Pt strongly advised to avoid OTC with pseudoephedrine in future -C/w Crestor GI: -HHD -Pepcid daily -No acute issues at this time Renal: -Nephrology consulted for uncontrolled HTN (Dr. Muñoz), recs appreciated -Renal U/s ordered -R/o secondary causes of HTN -BUN/Cr 24/1.3, cont to trend -Trend I's/O's -Hypokalemia this am 2.7, corrected with replacement, cont to trend Heme/ID: -H/H 15.8/45.7, cont to trend -No leukocytosis -Hx recent dx of flu as per pt prior to coming to ED; flu swab neg PPX: -Pepcid -SCD, Lovenox daily Dispo: Stable for downgrade from ICU to telemetry floor at this time. Pt seen, examined with, and plan discussed with Dr. Mccollum, attending physician. Beck Valentin DO PGY-1, [employer] Pager #[phone]
--- NOTE | 2018-11-13 08:18 | HP ---
HISTORY OF PRESENT ILLNESS: Desmond Cohn is a 58-year-old male, admitted to the hospital with chief complaint of weakness, fatigue, tiredness, headaches, came to the hospital with high blood pressure. The patient ____ CAT scan. The patient's history of hypertension is longstanding, on atenolol and losartan. The patient went to admission. Does not smoke. The patient does not exercise regularly. PHYSICAL EXAMINATION: GENERAL: The patient is awake, alert, oriented. VITAL SIGNS: Temperature 98, pulse 90. HEENT: Within normal limits. NECK: Supple. CHEST: Symmetrical. HEART: Regular. ABDOMEN: Soft. EXTREMITIES: No edema. IMPRESSION: Uncontrolled hypertension, cerebrovascular accident. PLAN: The patient to get bed rest, supportive care. . Neurology evaluation. Xuan Dewitt MD
[2018-11-13] MEDS ORDERED: Labetalol 25mg/5ml Syringe IVP STA (08:26)
[2018-11-13] MEDS: Potassium Chloride 20 mEq/15 ml LIQ UD PO SCH ×4 (08:32→14:04)
[2018-11-13] MEDS: Enoxaparin 40 mg Syringe SC SCH (08:59)
[2018-11-13] MEDS ORDERED: Magnesium Sulfate 1 gm in D5W 1 GM/100 ML BAG IVPB ONE (11:00)
--- NOTE | 2018-11-13 11:47 | CP.PCM.PN ---
<Janine Spaulding P - Last Filed: 11/13/18 18:30> Subjective - Date & Time of Evaluation Date of Evaluation: 11/13/18 Time of Evaluation: 11:00 - Subjective Subjective: Progress note for Dr. Pascual. Patient seen and examined at bedside. No acute events overnight. Patient states headache has completely resolved. Denies dizziness, nausea, vomiting, focal weakness, slurred speech. Objective - Vital Signs/Intake and Output Vital Signs (last 24 hours): Temp Pulse Resp BP Pulse Ox 97.8 F 76 18 142/92 H 95 11/13/18 08:00 11/13/18 11:16 11/13/18 11:16 11/13/18 11:16 11/13/18 11:16 Intake and Output: 11/13/18 11/13/18 06:59 18:59 Intake Total 350 425 Output Total 1300 500 Balance -950 -75 - Medications Medications: Current Medications Clopidogrel Bisulfate (Plavix) 75 mg PO DAILY [facility] Last Admin: 11/13/18 09:03 Dose: 75 mg Enoxaparin Sodium (Lovenox) 40 mg SC DAILY [facility] Last Admin: 11/13/18 08:59 Dose: 40 mg Famotidine (Pepcid) 20 mg PO DAILY [facility] Last Admin: 11/13/18 08:59 Dose: 20 mg Hydralazine HCl (Apresoline) 10 mg PO QID [facility] Last Admin: 11/13/18 09:55 Dose: 10 mg Labetalol HCl (Trandate) 200 mg PO BID [facility] Last Admin: 11/13/18 08:59 Dose: 200 mg Losartan Potassium (Cozaar) 50 mg PO DAILY [facility] Oseltamivir Phosphate (Tamiflu Cap) 75 mg PO BID [facility]; Protocol Stop: 11/17/18 06:41 Last Admin: 11/13/18 10:03 Dose: 75 mg Potassium Chloride (Potassium Chloride Oral Soln) 20 meq PO Q2H [facility] Stop: 11/13/18 14:16 Last Admin: 11/13/18 09:55 Dose: 20 meq Potassium Chloride (K-Dur 20 Meq Er Tab) 20 meq PO BID [facility] Rosuvastatin Calcium (Crestor) 40 mg PO HS [facility] Last Admin: 11/12/18 21:54 Dose: 40 mg - Labs Labs: 11/13/18 06:00 11/13/18 06:00 - Constitutional Appears: Non-toxic, No Acute Distress - Head Exam Head Exam: ATRAUMATIC, NORMOCEPHALIC - Eye Exam Eye Exam: EOMI, Normal appearance, PERRL - ENT Exam ENT Exam: Mucous Membranes Moist - Neck Exam Neck Exam: Full ROM, Normal Inspection - Respiratory Exam Respiratory Exam: NORMAL BREATHING PATTERN. absent: Respiratory Distress - Neurological Exam Neurological Exam: Alert, Awake, CN II-XII Intact, Normal Gait, Oriented x3. absent: Motor Sensory Deficit Neuro motor strength exam: Left Upper Extremity: 5, Right Upper Extremity: 5, Left Lower Extremity: 5, Right Lower Extremity: 5 - Psychiatric Exam Psychiatric exam: Normal Affect, Normal Mood - Skin Skin Exam: Dry, Normal Color, Warm Assessment and Plan - Assessment and Plan (Free Text) Assessment: 58 year old Male admitted for hypertensive emergency Plan: -CT head shows chronic R lacunar infarct -Brain MRI- No evidence of acute intracranial hemorrhage or infarct. Multiple chronic appearing lacunar type infarcts about basal ganglia. -MRA head/neck- unremarkable -Carotid doppler ordered -Strict BP control Discussed with Dr. Ankur Spaulding, PGY-1 <Ulises Pascual - Last Filed: 11/15/18 09:22> Objective - Vital Signs/Intake and Output Vital Signs (last 24 hours): Temp Pulse Resp BP Pulse Ox 98.0 F 74 19 160/100 H 97 11/14/18 16:00 11/14/18 16:00 11/14/18 16:00 11/14/18 16:00 11/14/18 16:00 - Labs Labs: 11/14/18 06:15 11/14/18 06:15 Assessment and Plan - Assessment and Plan (Free Text) Assessment: All medical record entries made by the Resident were at my direction and personally dictated by me. I have reviewed the chart and agree that the record accurately reflects my personal performance of the history, physical exam, medical decision making, and the department course for this patient. I have also personally directed, reviewed, and agree with the discharge instructions and disposition. Mr. Mendez is a 58 yr old male who has refractory hypertension, and now has a normal neurological exam. His hypertension is still not controlled but he is doing well and stable for discharge. DR Pascual
--- NOTE | 2018-11-13 13:36 | MRI ---
Date of service: 11/13/2018 PROCEDURE: MR Angiography of the neck without contrast HISTORY: Old lacunar infarct COMPARISON: Correlation made with concurrent MRI and MRA of the brain.. Correlation also made with CTA brain 11/11/2018. TECHNIQUE: 3D [id number] angiography of the neck was performed. Rotating maximum intensity projection images of the cervical carotid and vertebral arteries were generated. The origins of the common carotid arteries were not visualized, which is a limitation inherent to the non-contrast time of flight technique. FINDINGS: RIGHT CAROTID ARTERIES: Common Carotid Artery: Normal. Carotid Bifurcation: Normal. Internal Carotid Artery:Normal. External Carotid Artery (proximal branches): Normal. LEFT CAROTID ARTERIES: Common Carotid Artery: Normal. Carotid Bifurcation: Normal. Internal Carotid Artery:Normal. External Carotid Artery (proximal branches): Normal. VERTEBRAL ARTERIES: Left vertebral artery is dominant. 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 Note that the intradural segment of the right distal vertebral artery is not visualized with any certainty on this study and could possibly terminate in a right-sided posterior inferior cerebellar artery (PICA). OTHER FINDINGS: None. 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 The distal vertebral artery (intradural segment is not seen with certainty on this exam and may in fact terminate in a right-sided posterior inferior cerebellar artery (PICA). Unremarkable anterior circulation bilaterally.
--- NOTE | 2018-11-13 13:42 | MRI ---
Date of service: 11/13/2018 PROCEDURE: MRI BRAIN WITHOUT CONTRAST HISTORY: Old lacunar infarct COMPARISON: Comparison made with prior CT scan and CTA brain 11/11/2018. Comparison also made with concurrent MRA of the neck and brain. TECHNIQUE: Multiplanar, multisequence MR images of the brain were obtained without intravenous contrast enhancement. FINDINGS: Note the examination is limited by motion artifact HEMORRHAGE: No acute parenchymal, subarachnoid or extra-axial hemorrhage. No evidence of hemosiderin deposition identified on gradient echo weighted sequence DWI: No evidence of an acute or early subacute infarction seen on diffusion imaging. BRAIN PARENCHYMA: Chronic periventricular white matter ischemic changes. Multiple more discrete chronic appearing lacunar type infarcts scattered about the superior basal ganglia/coronal radiata junction and centrum semiovale bilaterally. Mild generalized volume loss VENTRICLES: No obstructive hydrocephalus. CRANIUM: Unremarkable. ORBITS: Changes of bilateral cataract surgery again noted PARANASAL SINUSES/MASTOIDS: Minor mucosal thickening both maxillary antra as well as multiple ethmoid air cells. VASCULAR SYSTEM: Right-sided vertebral artery is not seen on this exam however the remaining visualized major vascular flow voids at skull base patent. OTHER FINDINGS: None. IMPRESSION: Slightly limited motion degraded study. No evidence of acute intracranial hemorrhage or infarct. Mild chronic periventricular white matter ischemic changes with multiple chronic appearing lacunar type infarcts scattered about the superior basal ganglia/wick radiata and centrum semiovale bilaterally. [id number] generalized volume loss.
--- NOTE | 2018-11-13 14:24 | MRI ---
Date of service: 11/13/2018 PROCEDURE: Magnetic Resonance Angiography Brain HISTORY: Old lacunar infarct COMPARISON: Comparison made with concurrent MRI brain and MRA of the neck. Correlation also made with CTA of the neck and brain 11/11/2018. TECHNIQUE: 3D time of flight MR angiography of the intracranial arteries was performed. Rotating maximum intensity projection images were generated. FINDINGS: Note that the examination is limited by motion artifact. INTERNAL CAROTID ARTERIES: Unremarkable. The skull base, petrous, cavernous and supraclinoid segments are bilaterally widely patient. ANTERIOR CEREBRAL ARTERIES: Unremarkable. A1 and A2 segments are widely patent. Smaller distal branches cannot be adequately evaluated due to motion artifact MIDDLE CEREBRAL ARTERIES: Unremarkable. M1 and M2 segments are widely patent. Distal smaller perisylvian an branches cannot be adequately evaluated due to motion artifact. POSTERIOR CIRCULATION: The distal aspect of the right vertebral artery (intradural segment) is not visualized with any certainty on this study and could conceivably terminate in a right-sided posterior inferior cerebellar artery (PICA).. Note that the left vertebral artery is dominant and the cervical portion of the right vertebral artery is is thread-like and presumably hypoplastic based on the small caliber of bony transverse foramina seen on CTA of the neck and brain 11/11/2018 The basilar artery is patent. The posterior cerebral arteries are not well delineated due to small caliber as well as significant motion artifact.. ANEURYSM/ VASCULAR MALFORMATIONS: No definitive evidence of large cerebral aneurysm nor vascular malformation. OTHER FINDINGS: None. IMPRESSION: Limited motion degraded study. The left vertebral artery is dominant. The cervical right vertebral artery is thread-like in appearance and is presumably hypoplastic based on appearance of the small caliber transverse foramina seen on recent CTA of the neck and brain. The distal aspect of the right vertebral artery (intradural segment) is not visualized on this study and could conceivably terminate in right-sided posterior inferior cerebellar artery. The distal branches of the anterior middle and posterior cerebral arteries poorly delineated due to significant motion artifact. No definitive evidence of large aneurysm or vascular malformation
[2018-11-13 16:44] LABS: URINE BILIRUBIN NEGATIVE (NEGATIVE); URINE BLOOD NEGATIVE (NEGATIVE); URINE CLARITY Clear (Clear); URINE COLOR Yellow (YELLOW); URINE GLUCOSE (UA) NORMAL (Normal); URINE LEUKOCYTE ESTERASE NEG Leu/uL (Negative); URINE PROTEIN 1+ mg/dL (NEGATIVE); URINE UROBILINOGEN NORMAL mg/dL (0.2-1.0)
--- NOTE | 2018-11-13 17:09 | CP.PCM.CON ---
History of Present Illness - History of Present Illness History of Present Illness: Nephrology Consultation Note: Assessment: Stable Acute Kidney Injury (N17.9) likely hemodynamic due to BP fluctuations Hypertensive Chronic Kidney Disease (I12.9) Chronic Kidney Disease (N18.2) Stage 2 with ? mg proteinuria (R80.9) likely due to HTN obesity active smoker uncontrolled severe HTN with urgency hypokalemia and metabolic alkalosis Hypercalcemia resolved Plan No acute need for renal replacement therapy at this time. Hypertension control with meds as ordered. Maintain hemodynamics stable. Avoid hypotension. Patient on losartan 50 mg/d. also on hydralazine and labetalol. can further uptitrate losartan if needed Monitor Input/Output, daily weights and renal function with basic metabolic panel supplement lytes as needed Check urine analysis, spot protein/creatinine, albumin/creatinine ratio, urine Cl Secondary HTN work up with TSH plasma renin/aldosterone, plasma metanephrine and renal artery Doppler to r/o renal artery stenosis Dose meds/antibiotics for eGFR >50 Glycemic control. pt need lifestyle modifications, stop smoking, exercise and loose weight Further work up/management as per primary team Thanks for allowing me to participate in care of your patient. Will follow patient with you. Please call if any Qs Dr Iglesia Mo Office: [phone] Chief Complaint; HTN Reason for consult: HTN HPI: Pt is a 58 M with hx of hypertension (20 years) obesity active smoker presented with complaints of headache after taking sudafed for few days for URI symptoms. admitted to ICU for HTN emergency Denies OTC/herbal meds or NSAIDs No recent iodinated contrast exposure. No obvious episodes of low BP. renal consult for HTN management denies licorice/etoh or drugs ROS: feels god. want to go home Cardiovascular: No chest pain. Pulmonary: No shortness of breath Gastrointestinal: denies abdominal pain No nausea. No vomiting. Genitourinary: No pain while urinating. Denies blood in urine. All other negative except as mentioned in HPI Physical Examination: General Appearance: Comfortable, in no acute respiratory distress, co-operative . Vitals reviewed and noted as below Head; Atraumatic, normocephalic ENT: no ulcers no thrush. Tongue is midline. Oropharynx: no rash or ulcers. EYES: Pupils are equal, round and reactive to light accommodation. Eye muscles and extraocular movement intact. Sclera is anicteric. Neck; supple no lymphadenopathy, no thyromegaly or bruit Lungs: Normal respiratory rate/effort. Breath sounds bilateral equal and clear Heart: Normal rate. s1s2 normal. No rub or gallop. Extremities: trace edema. No varicose veins Neurological: Patient is alert, awake and oriented to person, place and time. No focal deficit. Strength bilateral appropriate and equal Skin: Warm and dry. Normal turgor. No rash. Palpitation: Normal elasticity for age Abdomen: Abdomen is soft. Bowel sounds +. There is no abdominal tenderness, no guarding/rigidity no organomegaly Psych: normal insight and normal affect/mood MSK: no joint tenderness or swelling. Digits and nails normal, no deformity : kidney or bladder not palpable Labs/imaging reviewed. Past medical history, past surgical history, family history, social history, allergy reviewed and noted as below Family hx: no hx of CKD. Rest non-contributory Past Patient History - Past Social History Smoking Status: Light Smoker < 10 Cigarettes Daily - CARDIAC Hx Hypercholesterolemia: Yes Hx Hypertension: Yes - PULMONARY Hx Respiratory Tract Infection: Yes (flu) - RENAL Hx Kidney Stones: Yes - MUSCULOSKELETAL/RHEUMATOLOGICAL Hx Falls: No - PSYCHIATRIC Hx Substance Use: No - SURGICAL HISTORY Hx Surgeries: No - ANESTHESIA Hx Anesthesia: No Hx Anesthesia Reactions: No Hx Malignant Hyperthermia: No Has any member of the family had a problem w/ anesthesia?: No Meds Allergies/Adverse Reactions: Allergies Allergy/AdvReac Type Severity Reaction Status Date / Time aspirin AdvReac SWELLING Verified 11/11/18 17:32 - Medications Medications: Current Medications Clopidogrel Bisulfate (Plavix) 75 mg PO DAILY [facility] Last Admin: 11/13/18 09:03 Dose: 75 mg Enoxaparin Sodium (Lovenox) 40 mg SC DAILY [facility] Last Admin: 11/13/18 08:59 Dose: 40 mg Famotidine (Pepcid) 20 mg PO DAILY [facility] Last Admin: 11/13/18 08:59 Dose: 20 mg Hydralazine HCl (Apresoline) 10 mg PO QID [facility] Last Admin: 11/13/18 14:04 Dose: 10 mg Influenza Virus Vaccine (Flucelvax Quad 2822-3641 Syr) 60 mcg IM .ONCE ONE Stop: 11/15/18 16:01 Labetalol HCl (Trandate) 200 mg PO BID [facility] Last Admin: 11/13/18 08:59 Dose: 200 mg Losartan Potassium (Cozaar) 50 mg PO DAILY [facility] Oseltamivir Phosphate (Tamiflu Cap) 75 mg PO BID [facility]; Protocol Stop: 11/17/18 06:41 Last Admin: 11/13/18 10:03 Dose: 75 mg Pneumococcal Polyvalent Vaccine (Pneumovax 23 Vaccine) 0.5 ml IM .ONCE ONE Stop: 11/15/18 16:01 Potassium Chloride (K-Dur 20 Meq Er Tab) 20 meq PO BID [facility] Rosuvastatin Calcium (Crestor) 40 mg PO HS [facility] Last Admin: 11/12/18 21:54 Dose: 40 mg Results - Vital Signs Recent Vital Signs: Last Vital Signs Temp 97.3 F L 11/13/18 16:00 Pulse 75 11/13/18 16:50 Resp 17 11/13/18 16:50 BP 134/89 11/13/18 16:50 Pulse Ox 95 11/13/18 16:50 - Labs Result Diagrams: 11/13/18 06:00 11/13/18 06:00 Labs: Laboratory Results - last 24 hr 11/13/18 11/13/18 11/13/18 06:00 06:00 16:24 WBC 4.9 RBC 5.22 Hgb 15.8 Hct 45.7 MCV 87.5 MCH 30.4 MCHC 34.7 RDW 12.7 Plt Count 203 MPV 7.4 Neut % (Auto) 51.0 Lymph % (Auto) 38.4 Powell % (Auto) 7.9 Eos % (Auto) 2.1 Baso % (Auto) 0.6 Neut # (Auto) 2.5 Lymph # (Auto) 1.9 Powell # (Auto) 0.4 Eos # (Auto) 0.1 Baso # (Auto) 0.0 Sodium 136 Potassium 2.7 L Chloride 95 L Carbon Dioxide 35 H Anion Gap 8 L BUN 24 H Creatinine 1.3 Est GFR ( Amer) > 60 Est GFR (Non-Af Amer) 57 Random Glucose 97 Calcium 9.0 Phosphorus 3.1 Magnesium 1.9 Total Bilirubin 1.1 AST 27 ALT 18 L D Alkaline Phosphatase 42 Total Protein 6.5 Albumin 3.9 Globulin 2.6 Albumin/Globulin Ratio 1.5 Triglycerides 142 Cholesterol 148 LDL Cholesterol Direct 93 HDL Cholesterol 36 Urine Color Yellow Urine Clarity Clear Urine pH 6.0 Ur Specific [place] 1.010 Urine Protein 1+ H Urine Glucose (UA) Normal Urine Ketones Negative Urine Blood Negative Urine Nitrate Negative Urine Bilirubin Negative Urine Urobilinogen Normal Ur Leukocyte Esterase Neg Urine WBC (Auto) < 1 Urine RBC (Auto) 1
--- NOTE | 2018-11-13 17:20 | CARD ---
APPROVED REPORT Date of service: 11/11/2018 EKG Measurement Heart [id number] <Conclusion> Normal sinus rhythm Incomplete right bundle branch block Nonspecific T wave abnormality Abnormal ECG
--- NOTE | 2018-11-13 18:39 | US ---
Date of service: 11/13/2018 PROCEDURE: Ultrasound of the Kidneys HISTORY: HTN COMPARISON: None available. TECHNIQUE: Sonogram of the kidneys. FINDINGS: RIGHT KIDNEY: Measures: 5 1 x 12.1 cm. Normal in size, contour and echogenicity. No stone, solid mass lesion or hydronephrosis visualized. LEFT KIDNEY: Measures: 6.5 x 11.1 cm. Normal in size, contour and echogenicity. No stone, solid mass lesion or hydronephrosis visualized. OTHER FINDINGS: Incidental finding(s): Gallstones. IMPRESSION: Unremarkable renal sonogram.
--- NOTE | 2018-11-13 22:02 | CARD ---
APPROVED REPORT Date of service: 11/13/2018 EXAM: Two-dimensional and M-mode echocardiogram with Doppler and color Doppler. Other Information Quality : GoodRhythm : RISK FACTORS Hypertension 2D DIMENSIONS IVSd1.3 (0.7-1.1cm)LVDd5.2 (3.9-5.9cm) PWd1.3 (0.7-1.1cm)LA [id number] (18-58mL) LVDs3.3 (2.5-4.0cm)FS (%) 36.5 % LVEF (%)65.9 (>50%)LVEF (Rajan's)55.60 % M-Mode DIMENSIONS Left Atrium (MM)3.96 (2.5-4.0cm)IVSd1.12 (0.7-1.1cm) Aortic Root4.08 (2.2-3.7cm)LVDd5.76 (4.0-5.6cm) Aortic Cusp Exc.2.04 (1.5-2.0cm)PWd1.22 (0.7-1.1cm) FS (%) 38 %LVDs3.55 (2.0-3.8cm) LVEF (%)68 (>50%) Mitral Valve MV E Gyqnhyxy14.4cm/sMV A Zhsgmoxo03.3cm/sE/A ratio0.8 TDI Lateral E' Peak V3.77cm/sMedial E' Peak V4.42cm/sE/Lateral E'20.8 E/Medial E'17.7 Tricuspid Valve TR Peak Vryhckbq877ga/sTR Peak Gr.[id number] LEFT VENTRICLE The left ventricle is normal size. There is mild concentric left ventricular hypertrophy. Left ventricle systolic function is normal. The Ejection Fraction is 65-70%. There is normal LV segmental wall motion. Diastolic dysfunction. RIGHT VENTRICLE The right ventricle is normal size. There is normal right ventricular wall thickness. The right ventricular systolic function is normal. ATRIA The left atrium size is normal. The right atrium size is normal. The interatrial septum is intact with no evidence for an atrial septal defect. AORTIC VALVE The aortic valve is normal in structure. There is trace aortic regurgitation. There is no aortic valvular stenosis. There is no aortic valvular vegetation. MITRAL VALVE The mitral valve is normal in structure. There is no evidence of mitral valve prolapse. There is no mitral valve stenosis. Mitral regurgitation is mild. TRICUSPID VALVE The tricuspid valve is normal in structure. There is mild tricuspid regurgitation. Right ventricular systolic pressure is estimated at less than 30 mmHg. There is no pulmonary hypertension. PULMONIC VALVE The pulmonic valve is not well visualized. There is trace pulmonic valvular regurgitation. GREAT VESSELS The aortic root is normal in size. PERICARDIAL EFFUSION There is no significant pericardial effusion. <Conclusion> Left ventricle systolic function is normal. The Ejection Fraction is 65-70%. Hypertensive heart disease.. Diastolic dysfunction. There is trace aortic regurgitation. Mitral regurgitation is mild. There is mild tricuspid regurgitation. There is no pulmonary hypertension. There is trace pulmonic valvular regurgitation.
[2018-11-14 06:22] LABS: EOS # 0.2 K/uL (0.0-0.7); EOS % 3.4 % (0.0-4.0); HEMOGLOBIN 15.8 g/dL (12.0-18.0); LYMPH # 1.8 K/uL (1.0-4.3); LYMPH % 35.8 % (20.0-40.0); MEAN CELL VOLUME 88.8 fL (80.0-94.0); MEAN CORPUSCULAR HEMOGLOBIN 30.3 pg (27.0-31.0); MEAN CORPUSCULAR HGB CONC 34.1 g/dL (33.0-37.0); MONO # 0.4 K/uL (0.0-0.8); NEUT # 2.5 K/uL (1.8-7.0); NEUT % 50.8 % (50.0-75.0); NRBC % 0.1 % (0.0-2.0); RBC 5.22 Mil/uL (4.40-5.90); RED CELL DISTRIBUTION WIDTH 12.8 % (11.5-14.5); WHITE BLOOD COUNT 4.9 K/uL (4.8-10.8)
[2018-11-14 07:02] LABS: ALB/GLOB RATIO 1.6 (1.0-2.1); ALBUMIN 3.9 g/dL (3.5-5.0); CALCIUM 8.7 mg/dl (8.6-10.4)
[2018-11-14] MEDS: Enoxaparin 40 mg Syringe SC SCH (09:15)
[2018-11-14] MEDS ORDERED: Potassium Chloride 20 mEq ER Tab PO SCH (10:00)
--- NOTE | 2018-11-14 11:08 | CP.PCM.PN ---
<Janine Spaulding P - Last Filed: 11/14/18 14:42> Subjective - Date & Time of Evaluation Date of Evaluation: 11/14/18 Time of Evaluation: 10:00 - Subjective Subjective: Progress note for Dr. Pascual. Patient seen and examined at beside. No acute events overnight. Patient has no complaints at this time. Denies headache, dizziness, nausea, vomiting, unsteady gait. Objective - Vital Signs/Intake and Output Vital Signs (last 24 hours): Temp Pulse Resp BP Pulse Ox 97.9 F 72 15 179/108 H 97 11/14/18 08:00 11/14/18 08:11 11/14/18 08:11 11/14/18 08:11 11/14/18 08:00 Intake and Output: 11/14/18 11/14/18 06:59 18:59 Intake Total 480 150 Output Total 2300 300 Balance -1820 -150 - Medications Medications: Current Medications Amiloride HCl (Amiloride 5 Mg Tab) 5 mg PO DAILY [facility] Clopidogrel Bisulfate (Plavix) 75 mg PO DAILY [facility] Last Admin: 11/14/18 09:08 Dose: 75 mg Enoxaparin Sodium (Lovenox) 40 mg SC DAILY [facility] Last Admin: 11/14/18 09:15 Dose: 40 mg Ergocalciferol (Drisdol 50,000 Intl Units Cap) 50,000 cap PO QWK [facility] Famotidine (Pepcid) 20 mg PO DAILY [facility] Last Admin: 11/14/18 09:08 Dose: 20 mg Hydralazine HCl (Apresoline) 10 mg PO QID [facility] Last Admin: 11/14/18 09:09 Dose: 10 mg Influenza Virus Vaccine (Flucelvax Quad 3553-2166 Syr) 60 mcg IM .ONCE ONE Stop: 11/15/18 16:01 Labetalol HCl (Trandate) 200 mg PO BID [facility] Last Admin: 11/14/18 09:09 Dose: 200 mg Losartan Potassium (Cozaar) 100 mg PO DAILY [facility] Pneumococcal Polyvalent Vaccine (Pneumovax 23 Vaccine) 0.5 ml IM .ONCE ONE Stop: 11/15/18 16:01 Potassium Chloride (K-Dur 20 Meq Er Tab) 20 meq PO BID [facility] Last Admin: 11/14/18 09:08 Dose: 20 meq Rosuvastatin Calcium (Crestor) 40 mg PO HS [facility] Last Admin: 11/13/18 21:09 Dose: 40 mg - Labs Labs: 11/14/18 06:15 11/14/18 06:15 - Constitutional Appears: Non-toxic, No Acute Distress - Head Exam Head Exam: ATRAUMATIC, NORMOCEPHALIC - Eye Exam Eye Exam: EOMI, Normal appearance, PERRL - ENT Exam ENT Exam: Mucous Membranes Moist - Neck Exam Neck Exam: Full ROM - Respiratory Exam Respiratory Exam: NORMAL BREATHING PATTERN. absent: Respiratory Distress - Extremities Exam Extremities Exam: Full ROM, Normal Inspection - Neurological Exam Neurological Exam: Alert, Awake, CN II-XII Intact, Normal Gait, Oriented x3. absent: Motor Sensory Deficit Neuro motor strength exam: Left Upper Extremity: 5, Right Upper Extremity: 5, Left Lower Extremity: 5, Right Lower Extremity: 5 Additional comments: Finger to nose normal. - Psychiatric Exam Psychiatric exam: Normal Affect, Normal Mood - Skin Skin Exam: Dry, Normal Color, Warm Assessment and Plan - Assessment and Plan (Free Text) Assessment: 58 year old male admitted for hypertensive emergency. Plan: -CT head shows chronic R lacunar infarct -Brain MRI- No evidence of acute intracranial hemorrhage or infarct. Multiple chronic appearing lacunar type infarcts about basal ganglia. -MRA head/neck- unremarkable -Carotid doppler: No hemodynamically significant stenosis of the R or L extracranial carotid arteries -Strict BP control -Follow up outpatient in one week Discussed with Dr. Ankur Spaulding, PGY- <Ulises Pascual - Last Filed: 11/14/18 17:31> Objective - Vital Signs/Intake and Output Vital Signs (last 24 hours): Temp Pulse Resp BP Pulse Ox 98.0 F 74 19 160/100 H 97 11/14/18 16:00 11/14/18 16:00 11/14/18 16:00 11/14/18 16:00 11/14/18 16:00 Intake and Output: 11/14/18 11/14/18 06:59 18:59 Intake Total 480 350 Output Total 2300 1100 Balance -1820 -750 - Labs Labs: 11/14/18 06:15 11/14/18 06:15 Assessment and Plan - Assessment and Plan (Free Text) Plan: All medical record entries made by the Resident were at my direction and personally dictated by me. I have reviewed the chart and agree that the record accurately reflects my personal performance of the history, physical exam, medical decision making, and the department course for this patient. I have also personally directed, reviewed, and agree with the discharge instructions and disposition. Miri is a man who was admittd for hypertensive emergency and is now stable We will enforce strict bp control and monitor him outpatient. Thank you DR. Pascual
--- NOTE | 2018-11-14 12:08 | VASCLAB ---
Date of service: 11/14/2018 PROCEDURE: Carotid Duplex Exam. HISTORY: Headache COMPARISON: None available. TECHNIQUE: Grayscale and duplex Doppler evaluation of the cervical carotid and vertebral arteries were performed. The common carotid, carotid bifurcations and cervical Internal Carotid Artery (ICA) and proximal External Carotid Artery (ECA) were evaluated. The vertebral arteries were evaluated for gross patency and flow direction. Report prepared by SONJA Giordano FINDINGS: RIGHT CAROTID ARTERIES: 1. Common Carotid Artery: No significant focal plaque formation of the right common carotid artery. Maximum Peak Systolic velocity: 48 cm/sec: End-diastolic velocity 11 cm/sec. 2. Carotid Bifurcation: plaque formation. Maximum Peak Systolic velocity: 30 cm/sec: End-diastolic velocity 12 cm/sec. 3. Internal Carotid Artery: Plaque description: 3.1. Proximal Segment: Peak systolic velocity 32 cm/sec: End-diastolic velocity 14 cm/sec - % stenosis 0-15% 3.2. Middle Segment: Peak systolic velocity 37 cm/sec: End-diastolic velocity 16 cm/sec - % stenosis 0-15% 3.3. Distal Segment: Peak systolic velocity 40 cm/sec: End-diastolic velocity 17 cm/sec - % stenosis 0-15% 4. External Carotid Artery: No significant focal plaque formation. Peak systolic velocity 59 cm/sec 5. ICA/CCA Ratio: 0.9 LEFT CAROTID ARTERIES: 1. Common Carotid Artery: No significant focal plaque formation of the left common carotid artery. Maximum Peak Systolic velocity: 64 cm/sec: End-diastolic velocity 13 cm/sec. 2. Carotid Bifurcation: plaque formation. Maximum Peak Systolic velocity: 36 cm/sec: End-diastolic velocity 5 cm/sec. 3. Internal Carotid Artery: Plaque description: 3.1. Proximal Segment: Peak systolic velocity 34 cm/sec: End-diastolic velocity 13 cm/sec - % stenosis 0-15% 3.2. Middle Segment: Peak systolic velocity 56 cm/sec: End-diastolic velocity 26 cm/sec - % stenosis 0-15% 3.3. Distal Segment: Peak systolic velocity 39 cm/sec: End-diastolic velocity 16 cm/sec - % stenosis 0-15% 4. External Carotid Artery: No significant focal plaque formation. Peak systolic velocity 67 cm/sec 5. ICA/CCA Ratio: 1.0 VERTEBRAL ARTERIES: 1. Right Vertebral Artery: The right vertebral artery flow direction is antegrade. 2. Left Vertebral Artery: The left vertebral artery flow direction is antegrade. OTHER FINDINGS: 1. Right Brachial Blood pressure: 160/100 mmHg. 2. Left Brachial Blood pressure: 180/110 mmHg. IMPRESSION: RIGHT: Duplex scan does not suggest hemodynamically significant stenosis of the right extracranial carotid arteries. LEFT: Duplex scan does not suggest hemodynamically significant stenosis of the left extracranial carotid arteries.
[2018-11-14 16:23] VITALS: BP 160/100; PULSE 74; RESP 19; TEMP 98; O2SAT 97
--- NOTE | 2018-11-14 16:24 | CP.PCM.PN ---
Subjective - Date & Time of Evaluation Date of Evaluation: 11/14/18 Time of Evaluation: 09:00 Objective - Vital Signs/Intake and Output Vital Signs (last 24 hours): Temp Pulse Resp BP Pulse Ox 98.0 F 74 19 160/100 H 97 11/14/18 16:00 11/14/18 16:00 11/14/18 16:00 11/14/18 16:00 11/14/18 16:00 Intake and Output: 11/14/18 11/14/18 06:59 18:59 Intake Total 480 350 Output Total 2300 1100 Balance -1820 -750 - Medications Medications: Current Medications Amiloride HCl (Amiloride 5 Mg Tab) 5 mg PO DAILY [facility] Last Admin: 11/14/18 12:49 Dose: 5 mg Amlodipine Besylate (Norvasc) 5 mg PO DAILY [facility] Last Admin: 11/14/18 12:51 Dose: 5 mg Clopidogrel Bisulfate (Plavix) 75 mg PO DAILY [facility] Last Admin: 11/14/18 09:08 Dose: 75 mg Enoxaparin Sodium (Lovenox) 40 mg SC DAILY [facility] Last Admin: 11/14/18 09:15 Dose: 40 mg Ergocalciferol (Drisdol 50,000 Intl Units Cap) 50,000 cap PO QWK [facility] Famotidine (Pepcid) 20 mg PO DAILY [facility] Last Admin: 11/14/18 09:08 Dose: 20 mg Hydralazine HCl (Apresoline) 10 mg PO QID [facility] Last Admin: 11/14/18 14:05 Dose: 10 mg Influenza Virus Vaccine (Flucelvax Quad [id number] Syr) 60 mcg IM .ONCE ONE Stop: 11/15/18 16:01 Labetalol HCl (Trandate) 200 mg PO BID [facility] Last Admin: 11/14/18 09:09 Dose: 200 mg Losartan Potassium (Cozaar) 100 mg PO DAILY [facility] Pneumococcal Polyvalent Vaccine (Pneumovax 23 Vaccine) 0.5 ml IM .ONCE ONE Stop: 11/15/18 16:01 Potassium Chloride (K-Dur 20 Meq Er Tab) 20 meq PO BID [facility] Last Admin: 11/14/18 09:08 Dose: 20 meq Rosuvastatin Calcium (Crestor) 40 mg PO HS [facility] Last Admin: 11/13/18 21:09 Dose: 40 mg - Labs Labs: 11/14/18 06:15 11/14/18 06:15
--- NOTE | 2018-11-14 16:32 | CP.PCM.PN ---
Subjective - Date & Time of Evaluation Date of Evaluation: 11/14/18 Time of Evaluation: 10:00 - Subjective Subjective: Nephrology Consultation Note: Assessment: Stable Acute Kidney Injury (N17.9) likely hemodynamic due to BP fluctuations Hypertensive Chronic Kidney Disease (I12.9) Chronic Kidney Disease (N18.2) Stage 2 with ? mg proteinuria (R80.9) likely due to HTN obesity active smoker uncontrolled severe HTN with urgency hypokalemia and metabolic alkalosis Hypercalcemia resolved Plan No acute need for renal replacement therapy at this time. Hypertension control with meds as ordered. Maintain hemodynamics stable. Avoid hypotension. Patient on losartan 50 mg/d. also on hydralazine and labetalol. will further uptitrate losartan Monitor Input/Output, daily weights and renal function with basic metabolic panel supplement lytes as needed added amiloride 5 mg/d as urine Na <5 ? overactive ENac Channel Check urine analysis, spot protein/creatinine, albumin/creatinine ratio, urine Cl Secondary HTN work up with TSH plasma renin/aldosterone, plasma metanephrine and renal artery Doppler to r/o renal artery stenosis Dose meds/antibiotics for eGFR >50 Glycemic control. pt need lifestyle modifications, stop smoking, exercise and loose weight Further work up/management as per primary team Thanks for allowing me to participate in care of your patient. Will follow patient with you. Please call if any Qs Dr Iglesia Mo Office: [phone] Chief Complaint; HTN Reason for consult: HTN HPI: Pt is a 58 M with hx of hypertension (20 years) obesity active smoker presented with complaints of headache after taking sudafed for few days for URI symptoms. admitted to ICU for HTN emergency Denies OTC/herbal meds or NSAIDs No recent iodinated contrast exposure. No obvious episodes of low BP. renal consult for HTN management denies licorice/etoh or drugs ROS: feels god. want to go home Cardiovascular: No chest pain. Pulmonary: No shortness of breath Gastrointestinal: denies abdominal pain No nausea. No vomiting. Genitourinary: No pain while urinating. Denies blood in urine. All other negative except as mentioned in HPI Physical Examination: General Appearance: Comfortable, in no acute respiratory distress, co-operative . Vitals reviewed and noted as below Head; Atraumatic, normocephalic ENT: no ulcers no thrush. Tongue is midline. Oropharynx: no rash or ulcers. EYES: Pupils are equal, round and reactive to light accommodation. Eye muscles and extraocular movement intact. Sclera is anicteric. Neck; supple no lymphadenopathy, no thyromegaly or bruit Lungs: Normal respiratory rate/effort. Breath sounds bilateral equal and clear Heart: Normal rate. s1s2 normal. No rub or gallop. Extremities: trace edema. No varicose veins Neurological: Patient is alert, awake and oriented to person, place and time. No focal deficit. Strength bilateral appropriate and equal Skin: Warm and dry. Normal turgor. No rash. Palpitation: Normal elasticity for age Abdomen: Abdomen is soft. Bowel sounds +. There is no abdominal tenderness, no guarding/rigidity no organomegaly Psych: normal insight and normal affect/mood MSK: no joint tenderness or swelling. Digits and nails normal, no deformity : kidney or bladder not palpable Labs/imaging reviewed. Past medical history, past surgical history, family history, social history, allergy reviewed and noted as below Family hx: no hx of CKD. Rest non-contributory Objective - Vital Signs/Intake and Output Vital Signs (last 24 hours): Temp Pulse Resp BP Pulse Ox 98.0 F 74 19 160/100 H 97 11/14/18 16:00 11/14/18 16:00 11/14/18 16:00 11/14/18 16:00 11/14/18 16:00 Intake and Output: 11/14/18 11/14/18 06:59 18:59 Intake Total 480 350 Output Total 2300 1100 Balance -1820 -750 - Medications Medications: Current Medications Amiloride HCl (Amiloride 5 Mg Tab) 5 mg PO DAILY [facility] Last Admin: 11/14/18 12:49 Dose: 5 mg Amlodipine Besylate (Norvasc) 5 mg PO DAILY [facility] Last Admin: 11/14/18 12:51 Dose: 5 mg Clopidogrel Bisulfate (Plavix) 75 mg PO DAILY [facility] Last Admin: 11/14/18 09:08 Dose: 75 mg Enoxaparin Sodium (Lovenox) 40 mg SC DAILY [facility] Last Admin: 11/14/18 09:15 Dose: 40 mg Ergocalciferol (Drisdol 50,000 Intl Units Cap) 50,000 cap PO QWK [facility] Famotidine (Pepcid) 20 mg PO DAILY [facility] Last Admin: 11/14/18 09:08 Dose: 20 mg Hydralazine HCl (Apresoline) 10 mg PO QID [facility] Last Admin: 11/14/18 14:05 Dose: 10 mg Influenza Virus Vaccine (Flucelvax Quad [id number] Syr) 60 mcg IM .ONCE ONE Stop: 11/15/18 16:01 Labetalol HCl (Trandate) 200 mg PO BID [facility] Last Admin: 11/14/18 09:09 Dose: 200 mg Losartan Potassium (Cozaar) 100 mg PO DAILY [facility] Pneumococcal Polyvalent Vaccine (Pneumovax 23 Vaccine) 0.5 ml IM .ONCE ONE Stop: 11/15/18 16:01 Potassium Chloride (K-Dur 20 Meq Er Tab) 20 meq PO BID [facility] Last Admin: 11/14/18 09:08 Dose: 20 meq Rosuvastatin Calcium (Crestor) 40 mg PO HS [facility] Last Admin: 11/13/18 21:09 Dose: 40 mg - Labs Labs: 11/14/18 06:15 11/14/18 06:15
[2018-11-15] MEDS ORDERED: Ergocalciferol 50,000 Intl Units Cap PO SCH (10:00)
[2018-11-15] MEDS ORDERED: Pneumococcal 23-Valent Vaccine IM ONE (16:00)
[2018-11-15] MEDS ORDERED: Influenza Vaccine 60 mcg/0.5 mL SYR (4YR UP) IM ONE (16:00)
== END 2018-11-14 16:42 | disposition home or self-care (01) | DRG 305 ==
LOC: C.ER 17:23 → C.9E 22:31 → C.5S 23:00 → C.9I 11-12 03:37 → OBSVTOIN 11-12 19:03
PROVIDERS: ADMIT Internal Medicine Pulmonary Disease; ATTEND Internal Medicine Pulmonary Disease
DX: I16.1 Hypertensive emergency (principal); N17.9 Acute kidney failure, unspecified; E87.3 Alkalosis; I12.9 Hypertensive chronic kidney disease with stage 1 through stage 4 chronic kidney disease, or unspecified chronic kidney disease; R80.9 Proteinuria, unspecified; E87.6 Hypokalemia; E83.52 Hypercalcemia; E78.00 Pure hypercholesterolemia, unspecified; E66.9 Obesity, unspecified; E78.5 Hyperlipidemia, unspecified; Z87.442 Personal history of urinary calculi; F17.210 Nicotine dependence, cigarettes, uncomplicated; K27.9 Peptic ulcer, site unspecified, unspecified as acute or chronic, without hemorrhage or perforation; N18.2 Chronic kidney disease, stage 2 (mild)

== ENCOUNTER 2018-12-01 09:08 | Outpatient (CLI) | payer OTHER | END 2018-12-01 09:09 | disposition home or self-care (01) | LOC: C.VASC 09:08 | DX: I15.9 Secondary hypertension, unspecified (principal); N17.9 Acute kidney failure, unspecified ==